=== PATIENT | female | born 1950 | race Caucasian/White ===

== ENCOUNTER 2018-09-19 23:51 | Observation (INO) ==
[2018-09-20] MEDS ORDERED: ONDANSETRON HCL/PF 2 MG/ML VIAL IV ONE (00:24)
[2018-09-20] MEDS ORDERED: NORMAL SALINE 1,000 ML IV ONE (00:25)
--- NOTE | 2018-09-20 00:25 | ERNOTE ---
Abdominal HPI - General Chief Complaint: Abdominal Pain Time Seen by Provider: 09/20/18 00:10 Source: patient Exam Limitations: no limitations - Immun/Allergies/Home Medications Immunizatons: IMMUNIZATION HX Immunizations Up to Date Yes History of Influenza Vaccine Yes Hx Pneumococcal Vaccination Yes Allergies/Adverse Reactions: Allergies No Known Allergies Allergy (Unverified 09/19/18 23:55) Home Medications: HOME MEDICATIONS L.acidoph,Paracasei, B.lactis [Probiotic] 1 ea PO DAILY 09/20/18 [Last Taken Unknown] Multivitamin [Multivitamins] 1 ea PO DAILY 09/20/18 [Last Taken Unknown] Umeclidinium Brm/Vilanterol Tr [Anoro Ellipta 62.5-25 Mcg INH] 1 ea INHALATION DAILY 09/20/18 [Last Taken Unknown] - History of Present Illness Narrative: Onset of periumbilical pain approx 12 hours ago. She tried taking pepto-bismol about 5 hours ago but vomited soon thereafter. Has not eaten anything since around noon. Timing: getting worse Quality: moderate, aching, dullness Activities at Onset: none Associated Symptoms: Present: denies symptoms Prior Abdominal Problems: Present: none Review of Systems - Review of Systems Constitutional: Absent: recent illness, fever, chills ENT: Absent: nose congestion, nasal drainage Respiratory: Absent: shortness of breath, cough Cardiology: Absent: chest pain, palpitations Gastrointestinal/Abdominal: Present: See HPI Genitourinary: Absent: frequency, pain Musculoskeletal: Absent: back pain, muscle pain Skin: Absent: rash Endocrine: Absent: excessive sweating, flushing Medical History (Last Reviewed 09/20/18 @ 00:23 by Anibal Crowe DO) COPD (chronic obstructive pulmonary disease) Surgical History: Surgical History (Last Reviewed 09/20/18 @ 00:23 by Anibal Crowe DO) No significant past surgical history Family History: Family History (Last Reviewed 09/20/18 @ 00:23 by Anibal Crowe DO) Father Hodgkins disease Social History: Preferred Language Yakut Do you have any pentecostal or No cultural preference? Smoking Status Current every day smoker Have you smoked in the past 12 Yes months Do you dip or chew tobacco No Alcohol Use none Drug Use none No Social History Section defined Physical Exam - Physical Exam General Appearance: Present: wd/wn, alert, no apparent distress Head Exam: Present: normal inspection, no evidence of injury Ears, Nose, Throat: Present: normal ENT inspection Neck: Present: normal inspection, nontender Respiratory: Present: no respiratory distress, no accessory muscle use, chest nontender, lungs clear Cardiovascular/Chest: Present: regular rate, rhythm, no murmur, normal peripheral pulses Gastrointestinal/Abdominal: Present: normal bowel sounds, tenderness - diffuse most at umbilical level bilateral , guarding - mild. Absent: distended, rebound Back Exam: Present: normal inspection, normal range of motion Extremity Exam: Present: normal inspection, normal range of motion, no edema Neurological Exam: Present: alert, oriented, normal mood/affect, no motor/sensory deficits Skin Exam: Present: normal color, warm/dry Progress - Results and Orders Patient's Lab Results:: I have reviewed the patient's lab results. Results and Orders: Laboratory Tests 09/20/18 09/20/18 00:30 00:30 WBC 13.8 H Hgb 13.4 Hct 39.5 Plt Count 269 Neutrophils % 93.2 H Sodium 141 Potassium 3.8 Chloride 104 Anion Gap 14.7 H BUN 15 Creatinine 0.75 Random Glucose 121 H Calcium 9.3 Total Bilirubin 1.3 H AST 32 ALT 23 Alkaline Phosphatase 82 Total Protein 7.0 Albumin 3.8 Amylase 46 Lipase 48 L - Vital Signs Patient's Vital Signs:: I have reviewed the patient's vital signs. Vital Signs: Vital Signs 09/19/18 23:52 Temperature 38.4 C H Pulse Rate 86 Respiratory Rate 18 Blood Pressure 124/69 O2 Sat by Pulse Oximetry 95 - CT/Ultrasound CT/Ultrasound Narrative: 9.5 mm distended appendix with mild stranding. Mild acute appendicitis. - Progress/Reassessment Chief Complaint: Abdominal Pain Progress:: Unchanged Progress Note-Subjective: 09/20/18 04:[address] Harrison he will come see the patient and requests surgical crew to be called. 09/20/18 05:20 Dr. Harrison saw the patient in the ED and pt went directly to surgery from the ED. Departure Clinical Impression: Appendicitis Qualifiers: Appendicitis type: acute appendicitis Acute appendicitis type: with localized peritonitis Appendicitis gangrene presence: without gangrene Appendicitis perforation presence: without perforation Appendicitis abscess presence: without abscess Qualified Code(s): K35.30 - Acute appendicitis with localized peritonitis, without perforation or gangrene - Departure Disposition: Still a patient Condition: Good
[2018-09-20 00:37] LABS: Hematocrit 39.5 % (37.0-47.0); Hemoglobin 13.4 gm/dL (12.5-16.0); Mean Cell Volume 97.3 fl (78-100); Mean Corpuscular Hgb Conc 33.9 g/dl (32-36); Mean Platelet Volume 9.8 fl (8-12.5); Neutrophil # 12.9 K/mm3 (1.3-6.0); Neutrophil % 93.2 % (42-75.0); Platelet Count 269 K/mm3 (150-450); Red Blood Count 4.06 M/mm3 (4.2-5.4); Red Cell Distribution Width 12.8 % (11.5-14.0); White Blood Count 13.8 K/mm3 (4.0-10.5)
[2018-09-20 00:50] LABS: Albumin * 3.8 gm/dl (3.4-5.0); Anion Gap 14.7 mmol/L (6.8-13.8); Bilirubin, Total 1.3 mg/dL (0.0-1.1); Ca. Corrected For Albumin 9.1 mg/dL (8.4-10.2); Calcium * 9.3 mg/dL (7.9-10.9); Carbon Dioxide 26.1 mmol/L (24-32.6); Potassium 3.8 mmol/L (3.4-4.6)
[2018-09-20] MEDS ORDERED: DIATRIZOATE MEGLUMINE, SODIUM 30 ML BTL PO ONE (01:20)
[2018-09-20 02:10] LABS: Urine Bilirubin Negative (NEGATIVE); Urine Blood Negative /ul (NEGATIVE); Urine Ketone Negative (NEGATIVE); Urine Nitrite Negative (NEGATIVE); Urine Protein Negative (NEGATIVE); Urine Urobilinogen Normal (NORMAL)
[2018-09-20 02:16] LABS: Urine Appearance Clear (CLEAR); Urine Bacteria TRACE; Urine Color Yellow; Urine RBC None Seen /hpf (0-5); Urine WBC TRACE /hpf (0-5)
[2018-09-20] MEDS ORDERED: KETOROLAC TROMETHAMINE 30 MG/ML VIAL IV ONE (04:11)
[2018-09-20] MEDS ORDERED: RINGER'S SOLUTION,LACTATED 1,000 ML IV ONE (04:59)
--- NOTE | 2018-09-20 05:29 | HP ---
Chief Complaint - Chief Complaint Date of Service: 09/20/18 Time of Service: : Chief Complaint: abdominal pain History of Present Illness: Vague abdominal pain yesterday AM. Persisted and became lower abdominal. No vomiting. WBC elevated. CT shows findings suggestive of acute appendicitis. Temp elevated. Medical History (Last Reviewed 09/20/18 @ 05:22 by Iraida Harrison MD) COPD (chronic obstructive pulmonary disease) Surgical History: Surgical History (Last Updated 09/20/18 @ 05:29 by Iraida Harrison MD) History of colonoscopy with polypectomy No significant past surgical history Family History: Family History (Last Reviewed 09/20/18 @ 05:22 by Iraida Harrison MD) Father Hodgkins disease Social History: Preferred Language Tanzanian Do you have any rastafarian or No cultural preference? Smoking Status Current every day smoker Have you smoked in the past 12 Yes months Do you dip or chew tobacco No Alcohol Use none Drug Use none No Social History Section defined Review Of Systems (GEN) - Review of Systems Generalized/Overall Review: Absent: Chills EENTM: Present: No Symptoms Reported Respiratory: Present: No Symptoms Reported. Absent: Cough, Shortness of Breath Cardiac: Absent: Chest Pain, Edema, Palpitations Abdominal: Present: Abdominal Pain. Absent: Nausea, Vomiting Genitourinary: Present: Nocturia - once Musculoskeletal: Present: No Symptoms Reported Neurological: Present: No Symptoms Reported Skin: Present: No Symptoms Reported Immunizations: IMMUNIZATION HX Immunizations Up to Date Yes History of Influenza Vaccine Yes Hx Pneumococcal Vaccination Yes Allergies/Adverse Reactions: Allergies Allergy/AdvReac Type Severity Reaction Status Date / Time No Known Allergies Allergy Unverified 09/19/18 23:55 Home Medications: HOME MEDICATIONS L.acidoph,Paracasei, B.lactis [Probiotic] 1 ea PO DAILY 09/20/18 [Last Taken Unknown] Multivitamin [Multivitamins] 1 ea PO DAILY 09/20/18 [Last Taken Unknown] Umeclidinium Brm/Vilanterol Tr [Anoro Ellipta 62.5-25 Mcg INH] 1 ea INHALATION DAILY 09/20/18 [Last Taken Unknown] Exam - Exam Vital Signs: Vital Signs - Last Taken Temp 38.5 C H 09/20/18 04:42 Pulse 90 09/20/18 05:03 Resp 18 09/20/18 05:03 BP 90/40 09/20/18 05:03 Pulse Ox 93 09/20/18 05:03 Constitutional: Present: Alert, Oriented x3, Cooperative, Well nourished, Mild distress ENT Exam: Present: normal ENT inspection Eye Exam: bilateral eye: normal inspection Neck: Present: full range of motion, normal inspection Breasts: Present: Exam deferred Respiratory: Present: lungs clear. Absent: no respiratory distress Cardiovascular/Chest: Present: normal peripheral pulses, regular rate, rhythm Abdomen: Present: other - tender across lower abdomen Rt>Lt with guarding RLQ /Rectal: Present: Exam deferred Extremity: Present: normal range of motion, normal inspection. Absent: no pedal edema, no calf tenderness Skin Exam: Present: normal color Neurologic: Present: sewing techniques demonstrator II-XII nml as tested, normal cerebellar test, alert Appearance: Present: appropriate appearance, appropriate insight, neat Eye contact: Present: cooperative, good eye contact, normal speech Thoughts: Present: normal thought pattern Diagnostic Studies: Abnormal Lab Results 09/20/18 09/20/18 09/20/18 Range/Units 00:30 00:30 02:05 WBC 13.8 H (4.0-10.5) K/mm3 RBC 4.06 L (4.2-5.4) M/mm3 MCH 33.0 H (27-31) pg Neutrophils % 93.2 H (42-75.0) % Lymphocytes % 2.8 L (20-51) % Neutrophils # 12.9 H (1.3-6.0) K/mm3 Lymphocytes # 0.38 L (1.5-3.5) k/mm3 Anion Gap 14.7 H (6.8-13.8) mmol/L Random Glucose 121 H (70-110) mg/dL Total Bilirubin 1.3 H (0.0-1.1) mg/dL Lipase 48 L (73-393) U/L Urine WBC Trace H (0-5) /hpf Laboratory Results WBC 13.8 K/mm3 (4.0-10.5) H 09/20/18 00:30 RBC 4.06 M/mm3 (4.2-5.4) L 09/20/18 00:30 Hgb 13.4 gm/dL (12.5-16.0) 09/20/18 00:30 Hct 39.5 % (37.0-47.0) 09/20/18 00:30 MCV 97.3 fl (78-100) 09/20/18 00:30 MCH 33.0 pg (27-31) H 09/20/18 00:30 MCHC 33.9 g/dl (32-36) 09/20/18 00:30 RDW 12.8 % (11.5-14.0) 09/20/18 00:30 Plt Count 269 K/mm3 (150-450) 09/20/18 00:30 MPV 9.8 fl (8-12.5) 09/20/18 00:30 Immature Gran % (Auto) 0.20 % (0.001-0.429) 09/20/18 00:30 Immature Gran # (Auto) 0.03 K/mm3 (0.000-0.0310) 09/20/18 00:30 Neutrophils % 93.2 % (42-75.0) H 09/20/18 00:30 Lymphocytes % 2.8 % (20-51) L 09/20/18 00:30 Monocytes % 3.6 % (0.0-9) 09/20/18 00:30 Eosinophils % 0.1 % (0.0-3.0) 09/20/18 00:30 Basophils % 0.1 % (0.0-1.0) 09/20/18 00:30 Nucleated RBC % 0.0 k/mm3 (0-1) 09/20/18 00:30 Neutrophils # 12.9 K/mm3 (1.3-6.0) H 09/20/18 00:30 Lymphocytes # 0.38 k/mm3 (1.5-3.5) L 09/20/18 00:30 Monocytes # 0.5 k/mm3 (0.0-1.0) 09/20/18 00:30 Eosinophils # 0.0 k/mm3 (0.0-0.7) 09/20/18 00:30 Absolute Basophils 0.0 k/mm3 (0.0-0.1) 09/20/18 00:30 Sodium 141 mmol/L (132-142) 09/20/18 00:30 Plasma Sodium 141 mmol/L (130-142) 09/20/18 00:30 Potassium 3.8 mmol/L (3.4-4.6) 09/20/18 00:30 Chloride 104 mmol/L (97-106) 09/20/18 00:30 Carbon Dioxide 26.1 mmol/L (24-32.6) 09/20/18 00:30 Anion Gap 14.7 mmol/L (6.8-13.8) H 09/20/18 00:30 BUN 15 mg/dL (3-23) 09/20/18 00:30 Creatinine 0.75 mg/dL (0.4-1.4) 09/20/18 00:30 Est GFR (Non-Af Amer) 81 mL/min (60-130) 09/20/18 00:30 BUN/Creatinine Ratio 20.0 (9.0-21.6) 09/20/18 00:30 Random Glucose 121 mg/dL (70-110) H 09/20/18 00:30 Lactic Acid, Venous 1.0 mmol/L (0.4-2.0) 09/20/18 00:30 Calcium 9.3 mg/dL (7.9-10.9) 09/20/18 00:30 Calcium Adj for Albumin 9.1 mg/dL (8.4-10.2) 09/20/18 00:30 Total Bilirubin 1.3 mg/dL (0.0-1.1) H 09/20/18 00:30 AST 32 U/L (0-48) 09/20/18 00:30 ALT 23 U/L (19-67) 09/20/18 00:30 Alkaline Phosphatase 82 U/L (50-170) 09/20/18 00:30 Total Protein 7.0 gm/dL (6.2-8.2) 09/20/18 00:30 Albumin 3.8 gm/dl (3.4-5.0) 09/20/18 00:30 Amylase 46 U/L (25-115) 09/20/18 00:30 Lipase 48 U/L (73-393) L 09/20/18 00:30 Urine Color Yellow 09/20/18 02:05 Urine Appearance Clear (CLEAR) 09/20/18 02:05 Urine pH 7.0 pH (5.0-7.0) 09/20/18 02:05 Ur Specific [place] 1.010 SP.GR. (1.005-1.010) 09/20/18 02:05 Urine Protein Negative mg/dL (NEGATIVE) 09/20/18 02:05 Urine Glucose (UA) Negative mg/dL (NEGATIVE) 09/20/18 02:05 Urine Ketones Negative mg/dL (NEGATIVE) 09/20/18 02:05 Urine Blood Negative /ul (NEGATIVE) 09/20/18 02:05 Urine Nitrate Negative (NEGATIVE) 09/20/18 02:05 Urine Bilirubin Negative mg/dl (NEGATIVE) 09/20/18 02:05 Urine Urobilinogen Normal EU/dl (NORMAL) 09/20/18 02:05 Ur Leukocyte Esterase Negative /ul (NEGATIVE) 09/20/18 02:05 Urine RBC None seen /hpf (0-5) 09/20/18 02:05 Urine WBC Trace /hpf (0-5) H 09/20/18 02:05 Ur Epithelial Cells 0-5 /hpf (0-5) 09/20/18 02:05 Urine Bacteria Trace (NONE) 09/20/18 02:05 Urine Culture Comments No culture indicated 09/20/18 02:05 CT scan shows dilated appendix with adjacent haziness Assessment/Plan - Assessment/Plan (1) Appendicitis Assessment: Explained appendicitis and appendectomy (laparoscopic or open). Risks and possible complications outlined as well as expected post-op course. After an interactive discussion her questions were answered to her apparent satisfaction and informed consent obtained for appendectomy. IV Mefoxin, chlorhexidine wipes, SCD's Problem: Acute Qualifiers: Appendicitis type: acute appendicitis Acute appendicitis type: with localized peritonitis Appendicitis gangrene presence: without gangrene Appendicitis perforation presence: without perforation Appendicitis abscess presence: without abscess Qualified Code(s): K35.30 - Acute appendicitis with localized peritonitis, without perforation or gangrene
[2018-09-20] MEDS: RINGER'S SOLUTION,LACTATED 1,000 ML IV PRN ×2 (06:02→13:52)
[2018-09-20] MEDS ORDERED: oxyCODONE HCL/ACETAMINOPHEN 1 TAB TABLET PO PRN (06:47)
--- NOTE | 2018-09-20 07:15 | ANES ---
Post Anesthesia Discharge - Transfer of Care Transfer of Care handoff given to nurse: Yes - Discharge from PACU Discharge from PACU when meets criteria: Yes
--- NOTE | 2018-09-20 07:15 | ANES ---
Anesthesia Pre Procedure Eval Vitals/Labs: Last Vital Signs Temp 36.8 C 09/20/18 07:10 Pulse 85 09/20/18 07:10 Resp 20 09/20/18 07:10 BP 118/68 09/20/18 07:10 Pulse Ox 92 L 09/20/18 07:10 HOME MEDICATIONS L.acidoph,Paracasei, B.lactis [Probiotic] 1 ea PO DAILY 09/20/18 [Last Taken Unknown] Multivitamin [Multivitamins] 1 ea PO DAILY 09/20/18 [Last Taken Unknown] Umeclidinium Brm/Vilanterol Tr [Anoro Ellipta 62.5-25 Mcg INH] 1 ea INHALATION DAILY 09/20/18 [Last Taken Unknown] Allergies/Adverse Reactions: Allergies Allergy/AdvReac Type Severity Reaction Status Date / Time No Known Allergies Allergy Verified 09/20/18 07:13 - Planned Procedure Planned Procedure: APPENDICITIS Medication List Reviewed:: Yes Allergies Verified: Yes Medical History (Last Reviewed 09/20/18 @ 07:14 by Olu Hemphill CRNA) COPD (chronic obstructive pulmonary disease) Surgical History (Last Reviewed 09/20/18 @ 07:14 by Olu Hemphill CRNA) History of colonoscopy with polypectomy No significant past surgical history Family History (Last Reviewed 09/20/18 @ 07:15 by Olu Hemphill CRNA) Father Hodgkins disease - Family Anesthesia History Family History:: no untoward family reactions to anesthesia - Airway/Neck/Teeth Within Normal Limits:: Yes Teeth Condition: intact Neck Exam: full range of motion Mallampatti Score: 2 Thyromental (T-M) distance: > 6 cm Mandibulo Hyoid distance: > 3 cm - Respiratory Respiratory History: COPD Respiratory Physical: lungs clear Smoking Status: Current every day smoker Discussed smoking cessation including day of surgery: Yes Sleep Apnea currently treated: No Sleep Apnea by current assessment: No - Cardiovascular Tolerate Activity: Fair Heart Sounds: S1 & S2, Regular - Anesthesia Assessment and Plan ASA Class: PS, II, E Anesthesia Type Plan: General ET Planned difficult intubation/equipment available: No
--- NOTE | 2018-09-20 07:16 | ANES ---
Post Anesthesia Assessment - Vital Signs Vitals: Last Vital Signs Temp 36.8 C 09/20/18 07:10 Pulse 85 09/20/18 07:10 Resp 20 09/20/18 07:10 BP 118/68 09/20/18 07:10 Pulse Ox 92 L 09/20/18 07:10 Airway Patency: Normal - Mental Status Level Of Consciousness: Awake - Pain Level Pain Score: 2 - N/V Assessment Nausea/Vomiting Presence: None Dehydration:: No
[2018-09-20] MEDS: CEFOXITIN SODIUM 1 GM in DEXTROSE 5 % IN WATER 100 ML IV SCH ×4 (12:27→17:21)
--- NOTE | 2018-09-20 12:54 | OR ---
Operative Report - Dictated Report Narrative: Date of operation 09/20/2018 Preoperative diagnosis: Acute appendicitis Postoperative diagnosis: Acute appendicitis Operation: Laparoscopic appendectomy Surgeon: PATRICIA Harrison MD Anesthesia: GenCarl Hemphill CRNA Indications for procedure: The patient is a 68-year-old female who presented with a 1 day history of abdominal pain which is migrated to the lower abdomen. This was associated with elevated temperature, elevated WBC, and CT scan evidence of acute appendicitis Findings: Acute appendicitis Narrative of procedure: The patient was identified preoperatively, and prior to the administration of anesthetic a multidisciplinary timeout was observed. The patient was placed supine, SCDs were applied, and 2 g of intravenous Mefoxin administered. Rapid sequence endotracheal intubation was performed and general anesthetic was administered. The patient's abdomen was prepped with Betadine solution, and a generous operating field outlined with 4 sterile towels. The remainder the patient was covered with a sterile disposable drape. A transverse infraumbilical skin incision was made, and dissection was carried along the umbilical stalk until the fascia of the linea alba was encountered. This was incised. The peritoneum was elevated and incised to allow entry into the abdomen under direct vision. A Hussan cannula was placed and the abdomen insufflated with CO2. The laparoscopic camera was introduced and the abdomen briefly explored. Those portions of the liver, gallbladder, stomach, small and large intestine visualized appeared normal. There was some cloudy green fluid in the pelvis and under the right lobe of the liver. Next under direct vision, 2 additional working ports were inserted through separate skin incisions, one in the suprapubic area one in the left lower quadrant.The peritoneal fluid was suctioned. The apex of the cecum was grasped and retracted cephalad revealing an acutely inflamed appendix with exudate. The appendix appeared amenable to removal with a single application of the EVITA stapler. The stapler was placed across the base and the mesoappendix which were divided. The stump of the appendix was seen to be hemostatic and gas and liquid tight. The mesoappendix was seen to be hemostatic. The appendix was placed in an Endobag and parked in the right lower quadrant. The abdomen was again inspected and any visible peritoneal fluid was suctioned. The small working ports were then withdrawn under direct vision to ensure entry site hemostasis. The appendix was removed in conjunction with the Hussan cannula. The pneumoperitoneum was allowed to escape, and after receiving a correct sponge needle and instrument count attention was turned to closing the abdomen. The fascia and peritoneum at the umbilicus were approximated with interrupted sutures of #1 Vicryl. Skin incisions were approximated with interrupted vertical mattress sutures of 4-0 nylon. The operative sites were washed and dried. Dressings of Bactroban ointment and large Band-Aids were applied to the small port sites. The umbilical incision was dressed with Bactroban ointment, 2 x 2, large Band-Aid, and Medipore tape. The operative procedure was terminated at this point. There was no measurable blood loss. 0.5% Marcaine with epinephrine was used for local anesthetic infiltration area the appendix was submitted to pathology. The patient tolerated the anesthetic and procedure well without complication and was transferred to the recovery room awake, extubated, and in stable condition. The patient will be placed in an observation bed to receive additional IV antibiotics prior to discharge. Reviewed and electronically signed
--- NOTE | 2018-09-20 17:20 | DS ---
(1) Appendicitis Problem: Acute Qualifiers: Appendicitis type: acute appendicitis Acute appendicitis type: with localized peritonitis Appendicitis gangrene presence: without gangrene Appendicitis perforation presence: without perforation Appendicitis abscess presence: without abscess Qualified Code(s): K35.30 - Acute appendicitis with localized peritonitis, without perforation or gangrene Description of Stay: Had laparoscopic appendectomy for acute appendicitis. Chlorhexidine wipes and pre-op IV Mefoxin. SCD's and early ambulation for VTE prophylaxis. Post-op she was placed in Observation status to receive more IV fluids and 2 additional doses of IV Mefoxin due to appearance of appendix and peritoneal fluid. Pre-op pain was resolved and had only mild incisional discomfort. VS remained normal. Able to tolerate po intake, dressings remained clean, and was up without assistance. Home with instructions. Rx for Percocet 5/325mg #10. Has numbers to call for questions or concerns and post-op appointment made. Procedures Performed: see notes below - laparoscopic appendectomy Results and Findings: Lab Pending Results 09/20/18 00:30: WBC 13.8 H, RBC 4.06 L, Hgb 13.4, Hct 39.5, MCV 97.3, MCH 33.0 H, MCHC 33.9, RDW 12.8, Plt Count 269, MPV 9.8, Immature Gran % (Auto) 0.20, Immature Gran # (Auto) 0.03, Neutrophils % 93.2 H, Lymphocytes % 2.8 L, Monocytes % 3.6, Eosinophils % 0.1, Basophils % 0.1, Nucleated RBC % 0.0, Neutrophils # 12.9 H, Lymphocytes # 0.38 L, Monocytes # 0.5, Eosinophils # 0.0, Absolute Basophils 0.0 09/20/18 00:30: Sodium 141, Plasma Sodium 141, Potassium 3.8, Chloride 104, Carbon Dioxide 26.1, Anion Gap 14.7 H, BUN 15, Creatinine 0.75, Est GFR (Non-Af Amer) 81, BUN/Creatinine Ratio 20.0, Random Glucose 121 H, Calcium 9.3, Calcium Adj for Albumin 9.1, Total Bilirubin 1.3 H, AST 32, ALT 23, Alkaline Phosphatase 82, Total Protein 7.0, Albumin 3.8, Amylase 46, Lipase 48 L 09/20/18 00:30: Lactic Acid, Venous 1.0 09/20/18 02:05: Urine Color Yellow, Urine Appearance Clear, Urine pH 7.0, Ur Specific [place] 1.010, Urine Protein Negative, Urine Glucose (UA) Negative, Urine Ketones Negative, Urine Blood Negative, Urine Nitrate Negative, Urine Bilirubin Negative, Urine Urobilinogen Normal, Ur Leukocyte Esterase Negative, Urine RBC None seen, Urine WBC Trace H, Ur Epithelial Cells 0-5, Urine Bacteria Trace, Urine Culture Comments No culture indicated 09/20/18 06:50: Pathology Specimen Sent to path Discharge Location: Home Disposition: Home self-care Condition: Good Discharge Activity: Activity as tolerated, No Lifting Discharge Diet: General/regular food Problem Oriented Discharge Instructions to Patient/Family: Laparoscopic Appendectomy, Adult, Care After, [id number] Additional Patient Instructions (free text): to make office appointment for 7 days ([phone]) Prescriptions (Any new or edited meds): oxyCODONE HCL/ACETAMINOPHEN [Percocet 5 MG/325 MG] 1 tab PO Q4H PRN #10 tab PRN Reason: Moderate Pain (Pain Scale 4-6) Complete Home Medications List: Complete Home Medication List: L.acidoph,Paracasei, B.lactis [Probiotic] 1 ea PO DAILY 09/20/18 Multivitamin [Multivitamins] 1 ea PO DAILY 09/20/18 Umeclidinium Brm/Vilanterol Tr [Anoro Ellipta 62.5-25 Mcg INH] 1 ea INHALATION DAILY 09/20/18 oxyCODONE HCL/ACETAMINOPHEN [Percocet 5 MG/325 MG] 1 tab PO Q4H PRN #10 tab 09/20/18
[2018-09-20 18:04] VITALS: BP 121/68
[2018-09-21] MEDS ORDERED: CEFOXITIN SODIUM 2 GM in DEXTROSE 5 % IN WATER 100 ML IV PRN ×2 (06:00)
[2018-09-21] MEDS ORDERED: BUPIVACAINE HCL/EPINEPHRINE 50 ML VIAL IJ PRN (06:00)
== END 2018-09-20 18:03 | disposition home or self-care (01) ==
LOC: EDBD → ER 23:51 → MS 09-20 05:02 → AMB 09-20 05:02
PROVIDERS: ADMIT Surgery; ATTEND Surgery
DX: K35.30 Acute appendicitis with localized peritonitis, without perforation or gangrene
CPT/HCPCS: 36415; 74019; 74020; 74177; 80053; 81001; 82150; 83605; 83690; 85025; 88304; J2405; Q9967